=== PATIENT | female | born 1995 | race Caucasian/White ===

== ENCOUNTER 2016-09-14 04:59 | Emergency (ER) | payer BC, OTHER ==
[~2016-09-14] VITALS: Ht 167.6 cm; Wt 94.5 kg
[2016-09-14 05:02] VITALS: Ht 167.6 cm; Wt 94.5 kg
[2016-09-14 06:35] LABS: ADD SCAN DIFF NO
--- NOTE | 2016-09-14 06:40 | RADRPT ---
PROCEDURE: ULTRASOUND OBSTETRICAL CLINICAL INDICATION: 20-year-old female with pelvic pain. TECHNIQUE: Multiple sonographic images of the pelvis were obtained. The images were reviewed on a PACS workstation. COMPARISON: None. FINDINGS: There is a single intrauterine gestation. The mean sac diameter is 5.78 cm. There is a pole p resent with a crown-rump length of 4.63 cm. This yields an estimated gestational age of 12 weeks and 1 day. The estimated date of delivery is March 28, 2017. Cardiac activity is present at 168 duane ts per minute. There is no evidence for free fluid. The right ovary was not visualized. The left ov elpidio has a normal echotexture and measures 2.6 x 2.1 x 1.7 cm. There is normal flow to the left ovary . No adnexal masses are noted. IMPRESSION: 1. Single viable intrauterine gestation of approximately 12 weeks 1 day. The estimated date of del too is March 28, 2017. 2. The right ovary was not visualized. .Nile Holguin MD, Date Time Electronically viewed and signed by .Nile Holguin MD, on 09/14/2016 06:39 .M/
[2016-09-14 06:42] LABS: ADD UMIC YES; BASOPHIL # 0.1 10^3/ul (0.0-0.1); BASOPHILS % 0.4 % (0.0-2.0); EOSINOPHILS # 0.1 10^3/ul (0.0-0.5); EOSINOPHILS % 0.7 % (0.0-7.0); HEMATOCRIT 34.1 % (37.0-47.0); HEMOGLOBIN 11.8 g/dl (12.0-16.0); LYMPHOCYTES # 2.4 10^3/ul (0.8-2.9); LYMPHOCYTES % 20.2 % (15.0-51.0); MEAN CORPUSCULAR HEMOGLOBIN 29.9 pg (29.0-33.0); MEAN CORPUSCULAR HGB CONC 34.6 g/dl (32.0-37.0); MEAN CORPUSCULAR VOLUME 86.3 fl (82.0-101.0); MEAN PLATELET VOLUME 12.3 fl (7.4-10.4); MONOCYTE # 0.9 10^3/ul (0.3-0.9); MONOCYTES % 7.5 % (0.0-11.0); NEUTROPHIL # 8.5 10^3/ul (1.6-7.5); NEUTROPHILS % 70.7 % (39.0-77.0); PLATELET COUNT 181 10^3/UL (140-415); RED BLOOD COUNT 3.95 10^6/ul (4.20-5.40); URINE BILIRUBIN (Dip) NEGATIVE (NEGATIVE); URINE BLOOD (Dip) TRACE (NEGATIVE); URINE COLOR LT. YELLOW (YELLOW); URINE GLUCOSE (Dip) NEGATIVE (NEGATIVE); URINE KETONES (Dip) NEGATIVE (NEGATIVE); URINE LEUKOCYTE ESTERASE (Dip) 1+ (NEGATIVE); URINE NITRITE (Dip) NEGATIVE (NEGATIVE); URINE TOTAL PROTEIN (Dip) NEGATIVE (NEGATIVE); URINE UROBILINOGEN (Dip) 0.2 E.U./dL (0.1-1.0); WHITE BLOOD COUNT 12.1 10^3/ul (4.8-10.8)
[2016-09-14 07:01] LABS: BACTERIA,URINE FEW; URINE RBCS 0-2 /HPF (0)
[2016-09-14] MEDS ORDERED: NITR-58 PO (07:06)
--- NOTE | 2016-09-14 07:24 | ERD ---
ER Documentation Chief Complaint Date/Time DATE: 09/14/16 TIME: 07:22 Chief Complaint 12 wks , pelvic pain since 1 hour ago, denies vag bleeding HPI This is a 20-year-old female that presents to the ER with lower pelvic pain for the last hour. Patient describes pelvic pain as a burning sensation. Pelvic pain is nonradiating, she has not had anything for the pain. Patient denies any urinary frequency or dysuria. She denies any vaginal bleeding or vaginal discharge. She is currently 12 weeks and has had a normal thus far. A0. Patient denies any nausea vomiting or diarrhea. She denies any fevers or chills. She denies any flank pain. ROS 12 point review of systems was done, all negative except per HPI. Medications Home Meds Active Scripts Nitrofurantoin Monohyd Macrocr* (Macrobid*) 100 Mg Capsr, 100 MG PO BID for 7 Days, CAP Prov:NIVIA HOPSON C 09/14/16 Allergies Allergies: Coded Allergies: No Known Allergy (Unverified , 09/14/16) PMhx/Soc History of Surgery: No Anesthesia Reaction: No Hx Neurological Disorder: No Hx Respiratory Disorders: No Hx Cardiac Disorders: No Hx Psychiatric Problems: No Hx Miscellaneous Medical Probl: No Hx Alcohol Use: No Hx Substance Use: No Hx Tobacco Use: No Smoking Status: Never smoker Physical Exam Vitals Vital Signs Date Time Temp Pulse Resp B/P Pulse Ox O2 Delivery O2 Flow Rate FiO2 09/14/16 05:02 98.7 83 20 128/78 98 Physical Exam GENERAL: The patient is well developed and appropriate for usual state of health , in no apparent distress. HEENT: Atraumatic. CHEST: Clear to auscultation bilaterally. There are no rales, wheezes or rhonchi. HEART: Regular rate and rhythm. No murmurs, clicks, rubs or gallops. ABDOMEN: Soft, nontender and nondistended. Good bowel sounds. No rebound or guarding. No gross peritonitis. No gross organomegaly or masses. No Newman sign or McBurney point tenderness. BACK: No midline or flank tenderness. NEURO: Alert and oriented. SKIN: There is no apparent rash or petechia. The skin is warm and dry. Result Diagram: 09/14/16 0623 Results 24 hrs Laboratory Tests Test 09/14/16 06:23 White Blood Count 12.110^3/ul Red Blood Count 3.9510^6/ul Hemoglobin 11.8g/dl Hematocrit 34.1% Mean Corpuscular Volume 86.3fl Mean Corpuscular Hemoglobin 29.9pg Mean Corpuscular Hemoglobin Concent 34.6g/dl Red Cell Distribution Width 13.0% Platelet Count 11950^3/UL Mean Platelet Volume 12.3fl Neutrophils % 70.7% Lymphocytes % 20.2% Monocytes % 7.5% Eosinophils % 0.7% Basophils % 0.4% Nucleated Red Blood Cells % 0.0/100WBC Neutrophils # 8.510^3/ul Lymphocytes # 2.410^3/ul Monocytes # 0.910^3/ul Eosinophils # 0.110^3/ul Basophils # 0.110^3/ul Nucleated Red Blood Cells # 0.010^3/ul Urine Color LT. YELLOW Urine Clarity CLEAR Urine pH 6.0 Urine Specific [place] >=1.030 Urine Ketones NEGATIVE Urine Nitrite NEGATIVE Urine Bilirubin NEGATIVE Urine Urobilinogen 0.2 E.U./dL Urine Leukocyte Esterase 1+ Urine Microscopic RBC 0-2/HPF Urine Microscopic WBC 5-10/HPF Urine Epithelial Cells OCCASIONAL Urine Bacteria FEW Urine Hemoglobin TRACE Urine Glucose NEGATIVE% Urine Total Protein NEGATIVE Procedures/MDM Differential diagnosis: Threatened , missed , incomplete , ectopic , molar , UTI, pyelonephritis. At this time patient does appear to have a urinary tract infection, on physical examination she did have suprapubic tenderness this is likely the cause of her pelvic pain. Patient for an is low. Patient does not have any vaginal bleeding. I doubt pyelonephritis patient is afebrile and well- appearing she also does not have any flank pain. [facility] She is to follow-up with her primary care doctor within 1-2 days or return to ER sooner if symptoms worsen. My medical decision making was shared with the patient she understands and agrees with plan. Departure Diagnosis: Primary Impression: UTI (urinary tract infection) Condition: Stable Patient Instructions: Understanding Urinary Tract Infections (UTIs) Additional Instructions: Call your primary care doctor TOMORROW for an appointment during the next 1-2 days.See the doctor sooner or return here if your condition worsens before your appointment time. NIVIA HOPSON September 14, 2016 07:24
[2016-09-14 07:28] VITALS: BP 126/72; PULSE 76; RESP 19; TEMP 98.3
== END 2016-09-14 07:32 | disposition home or self-care (01) ==
LOC: FTE 04:59
DX: O23.41 Unspecified infection of urinary tract in pregnancy, first trimester (principal); R10.2 Pelvic and perineal pain; Z3A.12 12 weeks gestation of pregnancy
CPT/HCPCS: 36415; 76801; 81001; 84702; 85025; 86900; 86901; Z7502; 81003

== ENCOUNTER 2016-12-10 19:09 | Outpatient (CLI) | payer BC ==
[~2016-12-10] VITALS: Ht 162.6 cm; Wt 98.6 kg
[~2016-12-10 19:09] MED LIST: NITR-58 PO
[2016-12-10] MEDS ORDERED: NO MEDS AT HOME (19:21)
[2016-12-10 19:51] LABS: URINE BLOOD (Dip) POC Negative (NEGATIVE)
[2016-12-10 19:58] VITALS: Ht 162.6 cm; Wt 98.6 kg
[2016-12-10 19:59] VITALS: BP 122/59; PULSE 90; RESP 18
[2016-12-10 21:38] LABS: BASOPHILS % 0.3 % (0.0-2.0); EOSINOPHILS # 0.1 10^3/ul (0.0-0.5); EOSINOPHILS % 0.4 % (0.0-7.0); HEMATOCRIT 30.4 % (37.0-47.0); HEMOGLOBIN 10.4 g/dl (12.0-16.0); LYMPHOCYTES # 2.8 10^3/ul (0.8-2.9); LYMPHOCYTES % 19.7 % (15.0-51.0); MEAN CORPUSCULAR HEMOGLOBIN 29.9 pg (29.0-33.0); MEAN CORPUSCULAR HGB CONC 34.2 g/dl (32.0-37.0); MEAN CORPUSCULAR VOLUME 87.4 fl (82.0-101.0); MEAN PLATELET VOLUME 11.8 fl (7.4-10.4); MONOCYTE # 1.1 10^3/ul (0.3-0.9); MONOCYTES % 7.7 % (0.0-11.0); NEUTROPHIL # 10.3 10^3/ul (1.6-7.5); NEUTROPHILS % 71.1 % (39.0-77.0); PLATELET COUNT 177 10^3/UL (140-415); RED BLOOD COUNT 3.48 10^6/ul (4.20-5.40); RED CELL DISTRIBUTION WIDTH 13.2 % (11.5-14.5); WHITE BLOOD COUNT 14.4 10^3/ul (4.8-10.8)
[2016-12-10 21:53] LABS: ADD UMIC YES; UR ASCORBIC ACID NEGATIVE (NEGATIVE); UR BILIRUBIN (Dip) NEGATIVE (NEGATIVE); UR BLOOD (Dip) NEGATIVE (NEGATIVE); UR CLARITY CLEAR (CLEAR); UR COLOR STRAW (YELLOW); UR GLUCOSE (Dip) 1+ mg/dL (NEGATIVE); UR KETONES (Dip) NEGATIVE (NEGATIVE); UR LEUKOCYTE ESTERASE (Dip) TRACE Leu/ul (NEGATIVE); UR NITRITE (Dip) NEGATIVE (NEGATIVE); UR RBC 0 /HPF (0-5); UR SPECIFIC GRAVITY (Dip) 1.011 (1.003-1.030); UR SQUAMOUS EPITHELIAL CELL FEW /HPF (FEW); UR TOTAL PROTEIN (Dip) NEGATIVE (NEGATIVE); UR UROBILINOGEN (Dip) NEGATIVE (NEGATIVE)
[2016-12-10 22:04] LABS: ALBUMIN 3.8 g/dl (3.3-4.9); ALBUMIN/GLOBULIN RATIO 1.18; BILIRUBIN,INDIRECT 0.1 mg/dl (0-1.1); BILIRUBIN,TOTAL 0.1 mg/dl (0.2-1.3); CREATININE 0.54 mg/dl (0.44-1.00); POTASSIUM 3.7 mmol/L (3.5-5.1)
--- NOTE | 2016-12-10 22:19 | RADRPT ---
PROCEDURE: US OB. Ultrasound cervix CLINICAL INDICATION: Size and dates , abdominal pain TECHNIQUE: Multiple sonographic images of the pelvis and gravid uterus were obtained. In addition, transvaginal images of the cervix were obtained. The images were reviewed on a PACS workstation. COMPARISON: 09/14/2016 FINDINGS: The cervix is closed with a length of 4.0 cm. There is a single viable intrauterine gestation. Cardiac activity is present with 144 beats per min [place]. There is a breech/variable presentation. The placenta is posterior. There is no evidence for an abruption or placenta previa. There is a normal amount of amniotic fluid with a MVP = 3.9 cm. Measurements were made in order to determine age. The results are as follows: BPD =5.6 cm HC =21.1 cm AC =19.1 cm FL =4.3 cm Estimated gestational age of approximately 23 weeks and 4 days based on ultrasound measurements. Clinical age: 24 weeks and 0 days. The estimated date of delivery is 04/04/2017, based on ultrasound measurements. The EFW = 626 g, 30%, based on LMP age. RPTAT: AA IMPRESSION: Single viable intrauterine gestation of approximately 23 weeks and 4 days based on ultrasound measu rements. .Jesus Umaña MD, Date Time Electronically viewed and signed by .Jesus Umaña MD, MD on 12/10/2016 22:19 .S/
--- NOTE | 2016-12-11 00:26 | PN ---
Triage Information Date/Time 12/11/1610/22/16 Reason for visit: Abd/pelvic pain Weeks of Gestation 24w /Para Diabetes: none Hypertention: none Additional information no other subjective sx such as nausea and vomiting or diarrhea or chills ,fever Objective Vital Signs Date Time Temp Pulse Resp B/P Pulse Ox O2 Delivery O2 Flow Rate FiO2 12/10/16 19:59 97.6 90 18 122/59 Room Air Heart Rate: 140's Contractions: None Exam abdomen soft no sifnificant tenderness justina mild tenderness? more likely ligament CVA neg for tenderness Results/Medications Result Diagram: 12/10/16212612/10/162126 Results 24 hrs Laboratory Tests Test 12/10/16 19:30 12/10/16 19:57 12/10/16 21:27 Urine Color STRAW Urine Clarity CLEAR Urine pH 6.0 Urine Specific [place] 1.011 Urine Ketones NEGATIVE Urine Nitrite NEGATIVE Urine Bilirubin NEGATIVE Urine Urobilinogen NEGATIVE Urine Leukocyte Esterase TRACE A Urine Microscopic RBC 0 Urine Microscopic WBC 1 Urine Squamous Epithelial Cells FEW Urine Hemoglobin NEGATIVE Urine Glucose 1+ H Urine Total Protein NEGATIVE Bedside Urine pH (LAB) 5.5 Bedside Urine Protein (LAB) Negative Bedside Urine Glucose (UA) 0.1% H Bedside Urine Ketones (LAB) Negative Bedside Urine Blood Negative Bedside Urine Nitrite (LAB) Negative Bedside Urine Leukocyte Esterase (L Negative White Blood Count 14.4 H Red Blood Count 3.48 L Hemoglobin 10.4 L Hematocrit 30.4 L Mean Corpuscular Volume 87.4 Mean Corpuscular Hemoglobin 29.9 Mean Corpuscular Hemoglobin Concent 34.2 Red Cell Distribution Width 13.2 Platelet Count 177 Mean Platelet Volume 11.8 H Neutrophils % 71.1 Lymphocytes % 19.7 Monocytes % 7.7 Eosinophils % 0.4 Basophils % 0.3 Nucleated Red Blood Cells % 0.0 Neutrophils # 10.3 H Lymphocytes # 2.8 Monocytes # 1.1 H Eosinophils # 0.1 Basophils # 0.0 Nucleated Red Blood Cells # 0.0 Sodium Level 141 Potassium Level 3.7 Chloride Level 105 Carbon Dioxide Level 23 Anion Gap 17 H Blood Urea Nitrogen 6 L Creatinine 0.54 Glucose Level 76 Calcium Level 9.0 Total Bilirubin 0.1 L Direct Bilirubin 0.00 Indirect Bilirubin 0.1 Aspartate Amino Transf (AST/SGOT) 17 Alanine Aminotransferase (ALT/SGPT) 32 Alkaline Phosphatase 68 Total Protein 7.0 Albumin 3.8 Globulin 3.20 Albumin/Globulin Ratio 1.18 Imaging Results CVL 4.0 [id number] Disposition: Discharge Assessment/Plan IUP 24w ROUND LIGMENT SYNDROME PLAN discharge home with instruction not lift heavy object or sudden movement LORRIE PERAZA MD Dec 11, 2016 00:26
--- NOTE | 2016-12-11 00:57 | TRIAGE ---
OB Triage Datetime Report Generated by CPN: 12/11/2016 00:56 Datetime: 12/10/2016 23:30 Stage of : OB Triage Labor Evaluation Frequency: None Monitor Mode: External Datetime: 12/10/2016 23:15 Stage of : OB Triage Datetime: 12/10/2016 22:45 Stage of : OB Triage Datetime: 12/10/2016 22:30 Stage of : OB Triage Assessment Type: Triage Labor Evaluation Frequency: None Monitor Mode: External Datetime: 12/10/2016 21:30 Stage of : OB Triage Labor Evaluation Frequency: None Monitor Mode: External Datetime: 12/10/2016 21:10 Stage of : OB Triage Datetime: 12/10/2016 20:30 Stage of : OB Triage Labor Evaluation Frequency: None Monitor Mode: External Datetime: 12/10/2016 19:43 Assessment Type: Triage Maternal Assessment Level of Consciousness: Fully Conscious DTR's/Clonus: DTRs 2+; No Clonus Headache: Denies Blurred Vision: No Respiratory Effort: Unlabored; Regular Rhythm; Equal Expansion Breath Sounds, Left: Clear and Equal Breath Sounds, Right: Clear and Equal Nausea/Vomiting: Denies RUQ Epigastric Pain: Denies Lower Extremities Edema: Bilateral Lower Extremities Degree: 1+ Upper Extremities Edema: None Degree: None Facial Edema: None Fall Risk Assessment History of Falling: (0) No Secondary Diagnosis: (0) No Ambulatory Aid: (0) Bedrest/Nurse Assist IV Therapy: (0) No Gait: (0) Normal/Bedrest/Immobile Mental Status: (0) Oriented to Own Ability Fall Score: 0 Fall Risk Score Definition: No Risk: No action required Pain Assessment Pain Scale: 6 Pain Presence: Intermittent Pain Type: Cramping Pain Location: Abdomen; Back Pain Goal: 3 Pain Relief Measures: Comfort Measures Pain Assessment Comments: Pain in low abdomen/pelvic radiating to the side/back. Datetime: 12/10/2016 19:39 Heart Rate FHR Baseline Rate: 130 Monitor Mode: Doppler Datetime: 12/10/2016 19:36 Monitor Mode: External Contraction Comments: Applied Datetime: 12/10/2016 19:26 Time of Arrival: 12/10/2016 19:05 EGA: 24.0 Arrived By: Wheelchair Arrived From: Home Chief Complaint: Low abdominal pain Movement: Present Rupture of Membranes: Denies Vaginal Bleeding: None (Annotations: Data stored by N on behalf of user) Vaginal Discharge: Denies Recent Sexual Intercouse: Yes Abdominal Trauma: Not Applicable Patient Complaints: Other Time Provider Notified: 12/10/2016 20:13 Provider Notified: Jonathan Initial Plan: KRISTENM X2, UA, CBC, CMP, CL, EFW.
== END 2016-12-10 23:53 | disposition home or self-care (01) ==
LOC: OBT 19:09 → L-D 19:09 → OBT 23:53
PROVIDERS: ATTEND Obstetrics & Gynecology
DX: O26.892 Other specified pregnancy related conditions, second trimester (principal); R10.2 Pelvic and perineal pain; Z3A.24 24 weeks gestation of pregnancy
CPT/HCPCS: 76815; 76817; 80053; 81001; 85025; Z7500; 81003; G0463

== ENCOUNTER 2017-02-28 16:13 | Outpatient (CLI) | payer BC ==
[~2017-02-28] VITALS: Ht 157.5 cm; Wt 99.4 kg
[2017-02-28 16:23] VITALS: Ht 157.5 cm; Wt 99.4 kg
[2017-02-28 16:24] VITALS: BP 109/68; PULSE 89; RESP 18
[2017-02-28] MEDS ORDERED: PREN1COM PO (16:40)
[2017-02-28] MEDS ORDERED: LACTATED RINGER'S 1,000 ML IV ONE (17:00)
[2017-02-28] MEDS ORDERED: TERBUTALINE 1 MG/ML INJ SC ONE (17:00)
--- NOTE | 2017-02-28 18:03 | RADRPT ---
PROCEDURE: US biophysical profile. CLINICAL INDICATION: Decreased motion. TECHNIQUE: Multiple sonographic images of the uterus were obtained. The images were revi ewed on a PACS workstation. COMPARISON: No prior studies are available for comparison. FINDINGS: There is a single live intrauterine gestation. heart rate is 139 beats per minute. The position is cephalic. The placenta is posterior grade II with no abruption or previa. The MINGO is 12.1 cm. (Normal = 5-20 cm.) Breathing Movement: 2 Gross Body Movement: 2 Tone: 2 Qualitative Amniotic Fluid Volume: 2 TOTAL: 8 IMPRESSION: 1. The biophysical score is 8/8. RPTAT: QQ .Maksim Anderson MD, MD Date Time Electronically viewed and signed by .Maksim Anderson MD, on 02/28/2017 18:03 .R/
--- NOTE | 2017-02-28 18:50 | PN ---
Triage Information Date/Time Reason for visit: Uterine contractions Weeks of Gestation 35+ /Para ... Diabetes: none Hypertention: none Objective Vital Signs Date Time Temp Pulse Resp B/P Pulse Ox O2 Delivery O2 Flow Rate FiO2 02/28/17 16:24 98.1 89 18 109/68 Room Air Heart Rate: 140's Contractions: None Disposition: Discharge Assessment/Plan No Abdominal pain at this time. No cervical change BPP 12/13 Discharged with precautions Patient's questions answered PINEDA HERNANDEZ M.D. Feb 28, 2017 18:50
--- NOTE | 2017-02-28 19:02 | TRIAGE ---
OB Triage Datetime Report Generated by CPN: 02/28/2017 19:01 Datetime: 02/28/2017 18:00 Labor Evaluation Monitor Mode: External Resting Tone [place]: Relaxed Heart Rate FHR Baseline Rate: 135 FHR Baseline Changes: No Baseline Change Variability: Moderate 6-25 bpm Accelerations: 15X15 Decelerations: None Category: Category I Pain Assessment Pain Scale: 5 Pain Presence: Intermittent Pain Type: Ache Pain Location: Back Pain Goal: 0 Pain Relief Measures: Comfort Measures Pain Assessment Comments: Pt states she has no more pain in lower abdomen, but states pain is in h er back is "getting worse" Datetime: 02/28/2017 17:15 Vaginal Exam Dilatation (cms): 0.0 Effacement (%): 0 Station: -4 Exam By: Sulema RN Datetime: 02/28/2017 17:00 Labor Evaluation Monitor Mode: External Resting Tone [place]: Relaxed Contraction Comments: No UC noted on monitor and no contractions palpated by RN, even when pt stat es she feels some pressure in lower adomen Heart Rate FHR Baseline Rate: 125 Monitor Mode: External US FHR Baseline Changes: No Baseline Change Variability: Moderate 6-25 bpm Accelerations: 15X15 Decelerations: None Category: Category I Pain Assessment Pain Scale: 4 Pain Presence: Intermittent Pain Type: Contraction Pain Location: Abdomen; Back Pain Goal: 0 Pain Relief Measures: Comfort Measures Pain Assessment Comments: Pt states she feels pain in lower back and lower abdomen area Datetime: 02/28/2017 16:26 Time of Arrival: 02/28/2017 16:00 EGA: 35.3 Arrived By: Ambulatory Arrived From: Home Chief Complaint: Abdominal pain, decreased movement Movement: Decreased Contractions: Occasional Time Contractions Began: 02/28/2017 12:30 Rupture of Membranes: Denies Vaginal Bleeding: Normal Show Vaginal Discharge: Present Recent Sexual Intercouse: Yes Abdominal Trauma: Not Applicable Patient Complaints: Contractions Time Provider Notified: 02/28/2017 16:43 Provider Notified: Jonathan Initial Plan: NST, BPP, IV Hydration, Terb 0.25mg subq x1, VE Datetime: 02/28/2017 16:25 Assessment Type: Triage Maternal Assessment Level of Consciousness: Fully Conscious DTR's/Clonus: DTRs 2+; No Clonus Headache: Denies Blurred Vision: No Respiratory Effort: Unlabored; Regular Rhythm; Equal Expansion Breath Sounds, Left: Clear and Equal Breath Sounds, Right: Clear and Equal Nausea/Vomiting: Denies RUQ Epigastric Pain: Denies Lower Extremities Edema: Bilateral Lower Extremities Degree: Trace Upper Extremities Edema: None Degree: None Facial Edema: None Fall Risk Assessment History of Falling: (0) No Secondary Diagnosis: (0) No Ambulatory Aid: (0) Bedrest/Nurse Assist IV Therapy: (0) No Gait: (0) Normal/Bedrest/Immobile Mental Status: (0) Oriented to Own Ability Fall Score: 0 Fall Risk Score Definition: No Risk: No action required Datetime: 02/28/2017 16:17 Stage of : OB Triage Datetime: 12/10/2016 19:43 Fall Score: 0 Fall Risk Score Definition: No Risk: No action required Datetime: 12/10/2016 19:26 EGA: 24.0 Contractions: Denies/Absent (Annotations: Data stored by N on behalf of user)
== END 2017-02-28 18:55 | disposition home or self-care (01) ==
LOC: OBT 16:13 → OBG 16:16 → OBT 18:55
PROVIDERS: ATTEND Obstetrics & Gynecology
DX: O62.9 Abnormality of forces of labor, unspecified (principal); Z3A.35 35 weeks gestation of pregnancy
CPT/HCPCS: 76818; 96360; J3105; J7120; Z7500; G0463

== ENCOUNTER 2017-03-21 20:43 | Outpatient (CLI) | payer BC ==
[~2017-03-21] VITALS: Ht 165.1 cm; Wt 101.9 kg
[~2017-03-21 20:43] MED LIST changes: -NITR-58 PO; +PREN1COM PO
[2017-03-21 21:07] VITALS: Ht 165.1 cm; Wt 101.9 kg
[2017-03-21 21:08] VITALS: BP 111/63; PULSE 92; RESP 16
[2017-03-21] MEDS ORDERED: AMPI500V14 IJ (22:09)
--- NOTE | 2017-03-21 23:29 | RADRPT ---
PROCEDURE: OB ultrasound for biophysical profile with MINGO. CLINICAL INDICATION: Contractions. TECHNIQUE: Multiple sonographic images of the gravid uterus were obtained. COMPARISON: Pelvic ultrasound dated 02/28/2017. FINDINGS: breathing movement = 2/2 tone = 2/2 motion = 2/2 MINGO = 2/2 Single viable intrauterine gestation. Heart rate: 127 bpm. Presentation: Cephalic. Placenta: Posterior, grade 2 placenta. No evidence of abruption or placenta previa. MINGO = 11.4 cm IMPRESSION: 1. Single viable intrauterine gestation. 2. Biophysical profile = 8. 3. MINGO = 11.4 cm. RPTAT: HLBP .Josh Vela MD, Date Time Electronically viewed and signed by .Josh Vela MD, MD on 03/21/2017 23:29 .P/
--- NOTE | 2017-03-22 00:33 | PN ---
Triage Information Date/Time Reason for visit: Uterine contractions Weeks of Gestation 38 weeks /Para Diabetes: none Hypertention: none Objective Vital Signs Date Time Temp Pulse Resp B/P Pulse Ox O2 Delivery O2 Flow Rate FiO2 03/21/17 21:08 97.5 92 16 111/63 Room Air Heart Rate: 120's Heart Rate Comments Category I Contractions: 6-10 Minutes Apart Exam Cervix 1 cm Results/Medications Imaging Results BPP 12/13 Disposition: Discharge Assessment/Plan Not in active labor MCKAY MICHELLE MD Mar 22, 2017 00:33
--- NOTE | 2017-03-22 01:28 | TRIAGE ---
OB Triage Datetime Report Generated by CPN: 03/22/2017 01:28 Datetime: 03/22/2017 00:40 Stage of : OB Triage Datetime: 03/22/2017 00:25 Vaginal Exam Dilatation (cms): 1.0 Effacement (%): 50 Station: -3 Exam By: DR. DELSHAD Datetime: 03/21/2017 21:55 Pain Assessment Pain Scale: 3 Pain Presence: Intermittent Pain Type: Contraction Pain Location: Abdomen Pain Goal: 2 Pain Relief Measures: Comfort Measures Vaginal Exam Dilatation (cms): 0.5 Effacement (%): 50 Station: -3 Cervix, Position: Posterior Datetime: 03/21/2017 21:51 Time of Arrival: 03/21/2017 20:35 EGA: 38.3 Arrived By: Wheelchair Arrived From: Home Chief Complaint: CONTRACTIONS Movement: Present Contractions: Irregular Time Contractions Began: 03/21/2017 16:00 Rupture of Membranes: Denies Vaginal Bleeding: None Vaginal Discharge: Present Recent Sexual Intercouse: Denies Abdominal Trauma: Not Applicable Patient Complaints: Contractions Additional Patient Complaints: VAGINAL DISCHARGE Time Provider Notified: 03/21/2017 22:03 Provider Notified: NOEMI Initial Plan: EFM AND TOCO, BPP Datetime: 03/21/2017 20:57 Stage of : OB Triage Maternal Assessment Level of Consciousness: Fully Conscious DTR's/Clonus: DTRs 2+; No Clonus Headache: Denies Blurred Vision: No Respiratory Effort: Unlabored; Regular Rhythm; Equal Expansion Nausea/Vomiting: Denies RUQ Epigastric Pain: Denies Labor Evaluation Monitor Mode: External Heart Rate Monitor Mode: External US Comments: MONITORS APPLIED. AUDIBLE HEART TONES. Pain Assessment Pain Scale: 3 Pain Presence: Intermittent Pain Type: Contraction Pain Location: Abdomen; Back Pain Goal: 2 Pain Relief Measures: Comfort Measures Datetime: 02/28/2017 16:26 EGA: 35.3 Datetime: 02/28/2017 16:25 Fall Risk Assessment Fall Score: 0 Fall Risk Score Definition: No Risk: No action required Datetime: 12/10/2016 19:43 Fall Risk Assessment Fall Score: 0 Fall Risk Score Definition: No Risk: No action required Datetime: 12/10/2016 19:26 EGA: 24.0
== END 2017-03-22 00:40 | disposition home or self-care (01) ==
LOC: OBT 20:43 → L-D 20:46 → OBT 03-22 00:40
PROVIDERS: ATTEND Obstetrics & Gynecology
DX: O62.9 Abnormality of forces of labor, unspecified (principal); Z3A.38 38 weeks gestation of pregnancy
CPT/HCPCS: 76818; Z7500; G0463

== ENCOUNTER 2017-03-27 10:48 | Inpatient (IN) | payer BC ==
[~2017-03-27] VITALS: Ht 167.6 cm; Wt 101.9 kg
[~2017-03-27 10:48] MED LIST changes: +AMPI500V14 IJ
[2017-03-27 11:56] VITALS: Ht 167.6 cm; Wt 101.9 kg
[2017-03-27 11:58] VITALS: BP 113/64; PULSE 77; RESP 18
[2017-03-27] MEDS ORDERED: OXYTOCIN 30 UNITS/LR 500 ML IV PRN (12:30)
[2017-03-27] MEDS ORDERED: LACTATED RINGER'S 1,000 ML IV PRN (12:30)
[2017-03-27] MEDS ORDERED: IBUPROFEN 600 MG TAB PO PRN (12:30)
[2017-03-27] MEDS ORDERED: OXYTOCIN 30 UNITS/LR 500 ML IV SCH ×2 (12:30)
[2017-03-27] MEDS ORDERED: CARBOPROST 250 MCG INJ IM PRN (12:30)
[2017-03-27] MEDS ORDERED: MISOPROSTOL 200 MCG TAB PR PRN (12:30)
[2017-03-27] MEDS ORDERED: BUTORPHANOL 2 MG INJ IV PRN (12:30)
[2017-03-27] MEDS ORDERED: LIDOCAINE 1% (MPF) 30 ML INJ INJ PRN (12:30)
[2017-03-27] MEDS ORDERED: METHYLERGONOVINE 0.2 MG INJ IM PRN (12:30)
[2017-03-27] MEDS: LACTATED RINGER'S 1,000 ML IV SCH ×2 (13:07→17:29)
[2017-03-27 13:35] LABS: BASOPHIL # 0.1 10^3/ul (0.0-0.1); BASOPHILS % 0.4 % (0.0-2.0); EOSINOPHILS # 0.1 10^3/ul (0.0-0.5); EOSINOPHILS % 0.5 % (0.0-7.0); HEMATOCRIT 33.1 % (37.0-47.0); HEMOGLOBIN 10.9 g/dl (12.0-16.0); LYMPHOCYTES # 2.1 10^3/ul (0.8-2.9); LYMPHOCYTES % 18.5 % (15.0-51.0); MEAN CORPUSCULAR HEMOGLOBIN 28.1 pg (29.0-33.0); MEAN CORPUSCULAR HGB CONC 32.9 g/dl (32.0-37.0); MEAN CORPUSCULAR VOLUME 85.3 fl (82.0-101.0); MONOCYTES % 8.8 % (0.0-11.0); NEUTROPHILS % 71.1 % (39.0-77.0); PLATELET COUNT 158 10^3/UL (140-415); RED BLOOD COUNT 3.88 10^6/ul (4.20-5.40); RED CELL DISTRIBUTION WIDTH 14.3 % (11.5-14.5); WHITE BLOOD COUNT 11.3 10^3/ul (4.8-10.8)
[2017-03-27 13:47] LABS: INR 0.94; PROTIME 12.6 Sec (12.2-14.2)
[2017-03-27 13:48] LABS: PARTIAL THROMBOPLASTIN TIME 28.6 Sec (25.0-35.0)
[2017-03-27] MEDS ORDERED: DINOPROSTONE 10 MG VAG SUPP VAG ONE (14:00)
[2017-03-27] MEDS ORDERED: MINERAL OIL LIGHT 10 ML VIAL TOP PRN (14:00)
--- NOTE | 2017-03-27 17:32 | HP ---
Date/Time of Note Date/Time of Note DATE: 03/27/17 TIME: 17:31 OB - History Hx of Present Free Text/Dictation pt for induction at 39.2 : 2 Para: 1 Care: Good Care Ultrasounds: Normal mid trimester US Past Family/Social History * Past Medical, Surgical, Family and Obstetric Histories reviewed from chart. OB Admission Exam Vital Signs Vital Signs Vital Signs Date Time Temp Pulse Resp B/P Pulse Ox O2 Delivery O2 Flow Rate FiO2 03/27/17 11:58 97.8 77 18 113/64 Room Air Physical Exam HEENT: WNL Lungs: Clear Abdomen: WNL Extremities: Normal Reflexes: Normal Cervical Dilatation: None Last 72 hours Lab Results CBC & BMP 03/27/17 12:01 OB Assessment/Plan Plan: Induction Other plan: iup 39.2 induction of labor-cervidil plan ROSIO MOON MD Mar 27, 2017 17:32
[2017-03-28] MEDS: LACTATED RINGER'S 1,000 ML IV SCH ×3 (01:45→16:40)
[2017-03-28] MEDS ORDERED: OXYTOCIN 30 UNITS/LR 500 ML IV SCH (15:30)
[2017-03-28] MEDS ORDERED: FENTAnyl 2MCG/ML-ROPIV 0.2% 100 ML ONE (15:35)
[2017-03-28] MEDS ORDERED: DIPHENHYDRAMINE 50 MG INJ ONE (15:46)
[2017-03-28] MEDS ORDERED: ONDANSETRON 4 MG INJ ONE (15:46)
[2017-03-28] MEDS ORDERED: NALOXONE (0.4 MG/ML) INJ IV PRN (16:00)
[2017-03-28] MEDS: FENTAnyl 2MCG/ML-ROPIV 0.2% 100 ML BAG EPI SCH ×2 (16:38→21:10)
[2017-03-29] MEDS: LACTATED RINGER'S 1,000 ML IV SCH ×2 (00:06→07:52)
[2017-03-29] MEDS: FENTAnyl 2MCG/ML-ROPIV 0.2% 100 ML BAG EPI SCH (05:37)
--- NOTE | 2017-03-29 14:07 | PN ---
Date/Time of Note Date/Time of Note late entry DATE: 03/28/17 TIME: 14:03 OB Subjective Subjective Subjective no C/O labor pain OB Objective Objective Objective general P/Eis normal Cx: 50% 2cm -3 station OB Assessment/Plan Other Assessment: term gestation labor pains Other plan: continue Pitocin augmentation MICHAEL BOWDEN MD Mar 29, 2017 14:07
--- NOTE | 2017-03-29 14:22 | LDN ---
Date/Time of Note Date/Time of Note DATE: 03/29/17 TIME: 14:19 Delivery Summary Normal spontaneous vaginal delivery of a viable over intact perineum Weeks of Gestation 38+ Placenta Delivered: Spontaneously, Intact & Complete Episiotomy: No Perineal laceration: 0 Anesthesia type: Epidural Sponge & Needle done & correct: Yes All needle counts correct: Yes Any foreign bodies felt in the: No Problems: Infant Delivery Information Sex Sex: male Apgars 1 Minute: 9 5 Minute: 9 Suctioning Nose & mouth suctioned at yusuf: Yes Delee suction performed: No Umbilical Cord Umbilical cord with: 3 Vessels Cord presentations: nuchal cord Nuchal cord present X: 1 Cord Blood was obtained: Yes Mother & Baby Disposition Disposition Mom & Baby to Maternity; Good: Yes (Mother and baby were recovered in good condition) Mom transferred to: Other (Maternity) Baby to NICU: No MICHAEL BOWDEN MD Mar 29, 2017 14:22
[2017-03-29 16:53] VITALS: BP 118/69; PULSE 66; RESP 18
[2017-03-29] MEDS ORDERED: HYDROCODONE/APAP (5/325) TAB ONE (16:57)
[2017-03-29] MEDS ORDERED: CARBOPROST 250 MCG INJ IM PRN (17:00)
[2017-03-29] MEDS ORDERED: OXYTOCIN 30 UNITS/LR 500 ML IV PRN (17:00)
[2017-03-29] MEDS ORDERED: WITCH HAZEL/GLYCERIN PAD PR PRN (17:00)
[2017-03-29] MEDS ORDERED: MISOPROSTOL 200 MCG TAB PR PRN (17:00)
[2017-03-29] MEDS ORDERED: DIBUCAINE 1% 30 GM OINT PR PRN (17:00)
[2017-03-29] MEDS ORDERED: ZOLPIDEM 5 MG TAB PO PRN (17:00)
[2017-03-29] MEDS ORDERED: HYDROCODONE/APAP (5/325) TAB PO PRN ×2 (17:00)
[2017-03-29] MEDS ORDERED: BENZOCAINE 20% 56 ML SPRAY TOP PRN (17:00)
[2017-03-29] MEDS ORDERED: METHYLERGONOVINE 0.2 MG INJ IM PRN (17:00)
[2017-03-29] MEDS ORDERED: LANOLIN 7 GM TUBE TOP PRN (17:00)
[2017-03-29] MEDS: CEPHALEXIN 500 MG CAP PO SCH ×2 (17:45→23:33)
[2017-03-29] MEDS: IBUPROFEN 600 MG TAB PO SCH ×2 (18:00→23:32)
[2017-03-29] MEDS: LACTATED RINGER'S 1,000 ML IV* SCH (18:42)
[2017-03-29 18:55] VITALS: BP 120/77; RESP 18
[2017-03-29 19:50] VITALS: BP 109/64; PULSE 79; RESP 18
[2017-03-29] MEDS: SENNA/DOCUSATE NA (8.6MG/50MG) TAB PO SCH (21:18)
[2017-03-29] MEDS: MAGNESIUM HYDROXIDE 30ML CUP PO SCH (21:18)
[2017-03-29 23:39] VITALS: BP 111/69; PULSE 66; RESP 20
[2017-03-30] MEDS: LACTATED RINGER'S 1,000 ML IV* SCH (00:47)
[2017-03-30 04:10] VITALS: BP 116/70; PULSE 68; RESP 20
[2017-03-30] MEDS: IBUPROFEN 600 MG TAB PO SCH ×3 (06:04→18:06)
[2017-03-30] MEDS: CEPHALEXIN 500 MG CAP PO SCH ×3 (06:05→18:06)
[2017-03-30 07:50] VITALS: BP 102/55; PULSE 67; RESP 17
[2017-03-30] MEDS: MAGNESIUM HYDROXIDE 30ML CUP PO SCH ×2 (09:06→20:58)
[2017-03-30] MEDS: SENNA/DOCUSATE NA (8.6MG/50MG) TAB PO SCH ×2 (09:06→20:58)
[2017-03-30 09:40] LABS: BASOPHILS % 0.3 % (0.0-2.0); EOSINOPHILS % 0.4 % (0.0-7.0); HEMATOCRIT 31.4 % (37.0-47.0); HEMOGLOBIN 10.4 g/dl (12.0-16.0); LYMPHOCYTES % 18.5 % (15.0-51.0); MEAN CORPUSCULAR HEMOGLOBIN 28.8 pg (29.0-33.0); MEAN CORPUSCULAR HGB CONC 33.1 g/dl (32.0-37.0); MEAN PLATELET VOLUME 12.9 fl (7.4-10.4); MONOCYTES % 9.5 % (0.0-11.0); NEUTROPHIL # 7.5 10^3/ul (1.6-7.5); NEUTROPHILS % 70.5 % (39.0-77.0); PLATELET COUNT 131 10^3/UL (140-415); RED BLOOD COUNT 3.61 10^6/ul (4.20-5.40); RED CELL DISTRIBUTION WIDTH 14.5 % (11.5-14.5); WHITE BLOOD COUNT 10.6 10^3/ul (4.8-10.8)
[2017-03-30 11:45] VITALS: BP 118/56; PULSE 75; RESP 19
[2017-03-30 15:50] VITALS: BP 113/66; PULSE 75; RESP 18
--- NOTE | 2017-03-30 15:51 | DS ---
Date/Time of Note Date/Time of Note Home today or following day DATE: 03/30/17 TIME: 15:50 Obstetrical Discharge Record Final Diagnosis Final Diagnosis: Term delivered Vaginal Delivery Obstetrical Delivery: Spontaneous Complications Augmentation: Yes Condition on Discharge Physical Assessment Last Vitals: See nurse's note Voiding: Yes Bowel Movement: Yes Breast: Soft, non-tender, Filling Fundus: Firm Abdomen and Incision: Abdomen is soft bowel sounds present This is firm at the U Episiotomy: Not applicable Calf Tenderness: No Patient Condition: Good MICHAEL BOWDEN MD Mar 30, 2017 15:51
[2017-03-30] MEDS ORDERED: IBUP-1542 PO (15:52)
--- NOTE | 2017-03-30 15:52 | PD.PPDC ---
RE EXAMINER Discharge Instruction Provider Information Physician Information 21-year-old female had vaginal delivery at term Diagnosis Final Diagnosis: Status post vaginal delivery Condition Patient Condition: Good Diet Diet: Resume Regular Diet Activity/Restrictions Activity: Normal Activity May Shower Restrictions: Nothing in the Vagina Return to Work or School: May 15, 2017 Follow-up Follow-up with Physician: 4, Week/Weeks (In clinic) Return to clinic for OB Instructions: Breast Tenderness Depression Comment: Pelvic rest for 6 weeks MICHAEL BOWDEN MD Mar 30, 2017 15:52
[2017-03-30 20:00] VITALS: BP 111/58; PULSE 70; RESP 18
[2017-03-31] MEDS: IBUPROFEN 600 MG TAB PO SCH ×3 (00:01→11:40)
[2017-03-31] MEDS: CEPHALEXIN 500 MG CAP PO SCH ×3 (00:01→11:39)
[2017-03-31 04:00] VITALS: BP 110/55; PULSE 67; RESP 18
[2017-03-31 07:40] VITALS: BP 105/60; PULSE 67; RESP 18
[2017-03-31] MEDS ORDERED: MEASLES,MUMPS,RUBELLA VACCINE INJ SC* ONE (09:00)
[2017-03-31] MEDS ORDERED: DIPHTH/TET/ACEL PERTUSS (ADULT) 0.5 ML VIAL IM* ONE (09:00)
[2017-03-31] MEDS ORDERED: VARICELLA VACCINE LIVE/PF 1,350 UNIT/0.5 ML ML SC* ONE (09:00)
[2017-03-31] MEDS: SENNA/DOCUSATE NA (8.6MG/50MG) TAB PO SCH (09:14)
[2017-03-31] MEDS: MAGNESIUM HYDROXIDE 30ML CUP PO SCH (09:14)
== END 2017-03-31 14:17 | disposition home or self-care (01) | DRG 775 ==
LOC: L-D 10:48 → PP1 03-29 18:56
PROVIDERS: ADMIT Obstetrics & Gynecology; ATTEND Obstetrics & Gynecology
PROC: 10E0XZZ Delivery of Products of Conception, External Approach (ICD-10-PCS; principal; 2017-03-27)
PROC: 3E0P7VZ Introduction of Hormone into Female Reproductive, Via Natural or Artificial Opening (ICD-10-PCS; 2017-03-27)
DX: O69.81X0 Labor and delivery complicated by cord around neck, without compression, not applicable or unspecified (principal); Z37.0 Single live birth; Z3A.39 39 weeks gestation of pregnancy
CPT/HCPCS: 62319; 85025; 85610; 85730; 86592; 86900; 86901; 90715; 90716; J0595; J1200; J2405; J2590; J3010; J7120